=== PATIENT | male | born 1985 | race Caucasian/White ===

== ENCOUNTER 2019-01-30 08:32 | Emergency (ER) | payer BC ==
[2019-01-30 09:08] LABS: BASOPHILS % (AUTO) 0.3 %; EOSINOPHILS # (AUTO) 0.1 10^3/uL (0.0-0.7); EOSINOPHILS % (AUTO) 0.6 %; HGB - HEMOGLOBIN 15.7 g/dL (14.0-18.0); LYMPHOCYTES # (AUTO) 1.4 10^3/uL (1.5-3.5); LYMPHOCYTES % (AUTO) 11.6 %; MEAN CORPUSCULAR HGB CONC 34.6 g/dL (32.0-36.0); MEAN CORPUSCULAR VOLUME 86.6 fL (80.0-94.0); MEAN PLATELET VOLUME 9.9 fL (7.4-11.4); MONOCYTES # (AUTO) 0.6 10^3/uL (0.0-1.0); MONOCYTES % (AUTO) 4.9 %; NEUTROPHILS # (AUTO) 9.6 10^3/uL (1.5-6.6); NEUTROPHILS % (AUTO) 82.3 %; PLT - PLATELET COUNT 303 10^3/uL (130-450); RED BLOOD COUNT 5.24 10^6/uL (4.70-6.10); WHITE BLOOD COUNT 11.7 x10^3/uL (4.8-10.8)
[2019-01-30 09:10] LABS: BILIRUBIN,URINE NEGATIVE (NEGATIVE); GLUCOSE, URINE (UA) NEGATIVE (NEGATIVE); KETONES,URINE (UA) NEGATIVE (NEGATIVE); LEUKOCYTE ESTERASE, URINE NEGATIVE (NEGATIVE); NITRITE,URINE NEGATIVE (NEGATIVE); OCCULT BLOOD,URINE LARGE (NEGATIVE); PH,URINE 6.5 PH (5.0-7.5); PROTEIN,URINE NEGATIVE (NEGATIVE); UROBILINOGEN,URINE 0.2 (NORMAL) E.U./dL (NORMAL)
[2019-01-30 09:12] LABS: CLARITY,URINE HAZY (CLEAR)
[2019-01-30 09:20] LABS: BACTERIA,URINE Moderate /HPF (None Seen); MUCUS,URINE Few Strands; SQUAMOUS EPITHELIAL CELL,UR RARE Squamous (<= Few)
[2019-01-30 09:22] LABS: ALBUMIN 4.6 g/dL (3.2-5.5); ALBUMIN/GLOBULIN RATIO 1.3 (1.0-2.2); BILIRUBIN,TOTAL 0.4 mg/dL (0.2-1.0); CALCIUM 9.4 mg/dL (8.5-10.3); TOTAL PROTEIN 8.1 g/dL (6.7-8.2)
[2019-01-30] MEDS ORDERED: KETOROLAC 30 MG/ML VIAL IVP STA (09:35)
[2019-01-30] MEDS ORDERED: SODIUM CHLORIDE 0.9% 1,000 ML IV ONE (09:35)
[2019-01-30 10:31] VITALS: BP 117/66
--- NOTE | 2019-01-30 10:33 | CT Report ---
Reason: Left flank pain mild hydro on bedside u/s Procedure Date: 01/30/2019 Accession Number: [id number] / [id number] Procedure: CT - Abdomen/Pelvis WO CPT Code: FULL RESULT: EXAM: CT ABDOMEN AND PELVIS (CT KUB) EXAM DATE: 01/30/2019 09:56 AM. CLINICAL HISTORY: Left flank pain. Mild hydro on bedside u/s. COMPARISONS: None. TECHNIQUE: Routine axial helical CT imaging was performed through the abdomen and pelvis without IV contrast. Reconstructions: Coronal and sagittal. In accordance with CT protocol optimization, one or more of the following dose reduction techniques were utilized for this exam: automated exposure control, adjustment of mA and/or KV based on patient size, or use of iterative reconstructive technique. FINDINGS: Lung Bases: Unremarkable. Right Kidney/Ureter: There is a 3 mm nonobstructing calculus in the lower pole (series 3, image 70). No other urolithiasis, hydronephrosis, contour deforming mass. Left Kidney/Ureter: There is a 6 mm obstructing calculus in the proximal ureter (series 3, image 76 and series 5, image 44). There is mild hydronephrosis. In addition, there is mild stranding around the proximal ureter (series 3, image 75). A cyst is present in the lower pole (series 3, image 74). Other Solid Organs: Liver, spleen, pancreas, and bilateral adrenal glands are unremarkable. Gallbladder/Bile Ducts: Unremarkable. Peritoneal Cavity: There is an ovoid, fat attenuation structure with mild surrounding stranding anterior to the distal descending colon (series 3, image 98), compatible with epiploic appendagitis. No evidence of primary bowel inflammation. Appendix is not visualized and may be surgically absent. No evidence of bowel obstruction. Pelvic Organs: Urinary bladder is unremarkable. No pelvic adenopathy or free fluid. There are small bilateral fat-containing inguinal hernias. Vasculature: No abdominal aortic aneurysm. Other: No suspicious osseous lesion. IMPRESSION: 1. A 6 mm obstructing calculus in the left proximal ureter results in mild hydronephrosis. 2. A 3 mm nonobstructing calculus is present in the lower pole of the right kidney. 3. Findings of epiploic appendagitis of the distal descending colon. 4. Small bilateral fat-containing indirect inguinal hernias. RADIA
--- NOTE | 2019-01-30 10:41 | ED Physician Documentation ---
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 He began to have this pain on his way to work and he has had his bring him here to the emergency department. The pain is severe unrelenting and without modifiable factors. He has not had this pain previously. Review of Systems Constitutional: denies: Fever Eyes: denies: Decreased vision Ears: denies: Ear pain Nose: denies: Congestion Throat: denies: Sore throat Cardiac: denies: Chest pain / pressure Respiratory: denies: Dyspnea, Cough GI: reports: Abdominal Pain, Nausea. denies: Vomiting, Constipation, Diarrhea : denies: Dysuria, Frequency, Hematuria Skin: denies: Rash Musculoskeletal: reports: Back pain. denies: Neck pain, Extremity pain Neurologic: denies: Generalized weakness, Focal weakness, Numbness PD PAST MEDICAL HISTORY - Past Medical History Cardiovascular: None Respiratory: None Neuro: None Endocrine/Autoimmune: None GI: GERD : None HEENT: None Psych: None, Other Musculoskeletal: None Derm: None - Past Surgical History Past Surgical History: Yes General: Appendectomy - Present Medications Home Medications: Ambulatory Orders Medication Instructions Recorded Confirmed Hydrocodone/Acetaminophen 1 - 2 each PO Q6H PRN #14 tablet 01/30/19 [Hydrocodon-Acetaminophen 5-325] Tamsulosin [Flomax] 0.4 mg PO DAILY #7 capsule 01/30/19 - Social History Does the pt smoke?: No Smoking Status: Never smoker Does the pt drink ETOH?: No Does the pt have substance abuse?: No - Immunizations Immunizations are current?: Yes - POLST Patient has POLST: No PD ED PE NORMAL - Vitals Vital signs reviewed: Yes (hypertensive ) - General General: Alert and oriented X 3, Well developed/nourished, Other (appears uncomfortable ) - HEENT HEENT: Atraumatic, PERRL, EOMI - Cardiac Cardiac: RRR, No murmur - Respiratory Respiratory: No respiratory distress, Clear bilaterally - Abdomen Abdomen: Normal bowel sounds, Soft, Non tender, Non distended, No organomegaly - Back Back: No CVA TTP, No spinal TTP - Derm Derm: Normal color, Warm and dry, No rash - Extremities Extremities: No deformity, No edema - Neuro Neuro: Alert and oriented X 3, 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, No motor deficit, No sensory deficit, Normal speech Eye Opening: Spontaneous Motor: Obeys Commands Verbal: Oriented GCS Score: 15 - Psych Psych: Normal mood, Normal affect Results - Vitals Vitals: Vital Signs - 24 hr 01/30/19 01/30/19 08:36 10:31 Temperature 36.5 C 36.7 C Heart Rate 73 73 Respiratory 22 18 Rate Blood Pressure 151/101 H 117/66 O2 Saturation 99 100 Oxygen O2 Source Room air - Labs Labs: Laboratory Tests 01/30/19 01/30/19 01/30/19 08:57 09:02 09:02 WBC 11.7 H RBC 5.24 Hgb 15.7 Hct 45.4 MCV 86.6 MCH 30.0 MCHC 34.6 RDW 12.0 Plt Count 303 MPV 9.9 Neut # (Auto) 9.6 H Lymph # (Auto) 1.4 L Nob[place] # (Auto) 0.6 Eos # (Auto) 0.1 Baso # (Auto) 0.0 Absolute Nucleated RBC 0.00 Nucleated RBC % 0.0 Sodium 141 Potassium 4.0 Chloride 103 Carbon Dioxide 26 Anion Gap 12.0 BUN 20 Creatinine 1.0 Estimated GFR (MDRD) 86 L Glucose 116 H Calcium 9.4 Total Bilirubin 0.4 AST 32 ALT 67 H Alkaline Phosphatase 65 Total Protein 8.1 Albumin 4.6 Globulin 3.5 Albumin/Globulin Ratio 1.3 Lipase 34 Urine Color YELLOW Urine Clarity HAZY Urine pH 6.5 Ur Specific [place] 1.020 Urine Protein NEGATIVE Urine Glucose (UA) NEGATIVE Urine Ketones NEGATIVE Urine Occult Blood LARGE H Urine Nitrite NEGATIVE Urine Bilirubin NEGATIVE Urine Urobilinogen 0.2 (NORMAL) Ur Leukocyte Esterase NEGATIVE Urine RBC 6-10 H Urine WBC 0-3 Ur Squamous Epith Cells RARE Squamous Urine Bacteria Moderate H Urine Mucus Few Strands Ur Microscopic Review INDICATED Urine Culture Comments INDICATED - Rads (name of study) CT ab/pel w/o Radiology: Prelim report reviewed (Impression: 1. A 6 mm obstructing calculus in the left proximal ureter results in mild hydronephrosis. A 3 mm nonobstructing calculus is present in the lower pole of the right kidney. Findings of epiploic appendagitis of the distal descending colon. Small bilateral fat-containing direct inguinal hernias.), EMP read indepedently, See rad report Procedures - Bedside sono Bedside sono by EMP: With use of bedside ultrasound the left kidney is imaged it is sonographically minimally tender and there is evidence of hydronephrosis mild. PD MEDICAL DECISION MAKING - ED course Complexity details: reviewed results, re-evaluated patient, considered differential, d/w patient, d/w family ED course: 33-year-old male with acute left flank pain has a 6 mm stone lodged in the upper ureter on the left side and he has some improvement in his pain with the use of Toradol. He is given intravenous saline as well. Departure - Departure Disposition: 01 Home, Self Care Clinical Impression: Ureterolithiasis Instructions: ED Stone Renal W Colic Follow-Up: Meir Hall MD [Physician No Access] - Prescriptions: Hydrocodone/Acetaminophen [Hydrocodon-Acetaminophen 5-325] 1 - 2 each PO Q6H PRN #14 tablet PRN Reason: pain Tamsulosin [Flomax] 0.4 mg PO DAILY #7 capsule Comments: Today it appears there is a 6 mm stone in the proximal left ureter. This stone may have some trouble passing. If you do not have relief with all of your symptoms within the next 3 days call the urologist to set up an appointment. Forms: Activity restrictions
== END 2019-01-30 11:31 | disposition home or self-care (01) ==
LOC: ED 08:32
DX: N13.2 Hydronephrosis with renal and ureteral calculous obstruction (principal)
CPT/HCPCS: 36415; 74176; 80053; 81001; 81003; 83690; 85025; 87086; 96374; 99284

== ENCOUNTER 2019-06-01 06:53 | Outpatient (CLI) | payer BC ==
--- NOTE | 2019-06-01 11:45 | Ultrasound Report ---
Reason: LT URETERAL CALCULUS Procedure Date: 06/01/2019 Accession Number: [id number] / [id number] Procedure: US - Retroperitoneal CPT Code: Final Report FULL RESULT: EXAM: RENAL ULTRASOUND EXAM DATE: 06/01/2019 07:58 AM. CLINICAL HISTORY: Left ureteral calculus. COMPARISON: ABDOMEN/PELVIS W/O 01/30/2019 9:50 AM. TECHNIQUE: Real-time scanning was performed with static images obtained. FINDINGS: Right Kidney: 12.5 x 7.4 x 6.1 cm. 0.8 mm lower pole stone consistent with finding on prior CT. Mild hydronephrosis prevoiding, mostly resolved postvoiding. Left Kidney: 13.3 x 5.4 x 4.8 cm. Normal echotexture with no stones, contour-deforming masses, or hydronephrosis. 1.6 cm cyst of the lower pole kidney. Bladder: Bilateral jets seen. The prevoid bladder volume was 251 cc. The postvoid bladder volume was 16 cc. Other: None. IMPRESSION: 1. Right lower pole nephrolithiasis, stable from prior CT. 2. Mild prevoiding right-sided hydronephrosis resolved with voiding. 3. 1.6 cm cyst lower pole left kidney. No left-sided stones or hydronephrosis. RADIA
== END 2019-06-01 06:54 | disposition home or self-care (01) ==
LOC: DI 06:53
PROVIDERS: ATTEND Urology
DX: N20.0 Calculus of kidney (principal); N28.1 Cyst of kidney, acquired
CPT/HCPCS: 76770

== ENCOUNTER 2022-09-22 12:05 | Emergency (ER) | payer BC ==
[2022-09-22] MEDS ORDERED: TETANUS/DIPHTHERIA/PERTUSSIS 0.5 ML SYRINGE IM ONE (12:33)
[2022-09-22] MEDS ORDERED: BACITRACIN ZINC OINT 1 PACKET TOP STA (12:33)
--- NOTE | 2022-09-22 12:54 | ED Physician Documentation ---
History of Present Illness - Stated complaint Stated Complaint: LT HAND LAC - Chief complaint Chief Complaint: Laceration - Additonal information Additional information: 37-year-old male presents emergency department for evaluation of a left distal index finger laceration sustained when cutting meat at home. Uncertain of last tetanus status. He is right-hand dominant. Bleeding controlled blood pressure. Review of Systems Skin: reports: Laceration (s) PD PAST MEDICAL HISTORY - Past Medical History Cardiovascular: None Respiratory: None Neuro: None Endocrine/Autoimmune: None GI: GERD : None HEENT: None Psych: None, Other Musculoskeletal: None Derm: None - Past Surgical History Past Surgical History: Yes General: Appendectomy - Present Medications Home Medications: Ambulatory Orders Medication Instructions Recorded Confirmed Hydrocodone/Acetaminophen 1 - 2 each PO Q6H PRN #14 tablet 01/30/19 [Hydrocodon-Acetaminophen 5-325] Tamsulosin [Flomax] 0.4 mg PO DAILY #7 capsule 01/30/19 - Allergies Allergies/Adverse Reactions: Allergies Allergy/AdvReac Type Severity Reaction Status Date / Time No Known Drug Allergies Allergy Verified 09/22/22 12:27 - Social History Does the pt smoke?: No Smoking Status: Never smoker Does the pt drink ETOH?: No Does the pt have substance abuse?: No - Immunizations Immunizations are current?: Yes - POLST Patient has POLST: No PD ED PE EXPANDED - Extremities Extremities: Left finger(s) (3 cm linear laceration distal radial side index finger left hand. Preserved flexion extension at DIP. Normal sensation.) Results - Vitals Vitals: Vital Signs - 24 hr 09/22/22 12:23 Temperature 36.8 C Heart Rate 87 Respiratory 20 Rate Blood Pressure 163/107 H O2 Saturation 98 Oxygen O2 Source Room air Procedures - Laceration (location) left finger index Length in cm: 3 Wound type: Linear, Into subcut fat Neurovascular status: Sensory intact, Motor intact, Vascular intact Tendon involvement: Tendon intact Anesthesia: Lidocaine 1% Wound preparation: Irrigated copiously NS Skin layer closure: Nylon (4), Interrupted, Sutures - enter # (6) Other: Patient tolerated well, No complications, Neurovascular intact, Tetanus booster given PD Medical Decision Making - ED course Complexity details: d/w patient ED course: 37-year-old male here with a left distal index finger laceration sustained when cutting meat at home. Tetanus was updated today. No evidence of neurovascular compromise or tendon injury. Wound was easily closed with 6 interrupted sutures. Bacitracin applied. Routine wound care and emergent return precautions discussed Departure - Departure Disposition: 01 Home, Self Care Clinical Impression: Laceration of left index finger Qualifiers: Encounter type: initial encounter Damage to nail status: without damage Foreign body presence: without foreign body Qualified Code(s): S61.211A - Laceration without foreign body of left index finger without damage to nail, initial encounter Condition: Stable Record reviewed to determine appropriate education?: Yes Comments: Your suture(s) should be removed in 10 days. In 24 hours you may remove the dressing wash gently with warm soap and water, apply any antibiotic ointment and a simple bandage. Your tetanus Was updated today and should be good for the next 7 to 10 years. In order to protect the wound and advanced wound healing, it is important that you limit the movement of the index finger at the distal tip. Every time you fl ex or extend your finger this will interrupt tissue healing. We will need to minimize movement at the distal tip for the next 7 to 10 days. Please attempt to keep your wound clean and dry. Do not submerge it in dirty dishwater or bath water. Return to the emergency department if you have any concerns of infection such as redness, fevers milky drainage increased pain.
[2022-09-22 13:42] VITALS: BP 150/78
== END 2022-09-22 13:42 | disposition home or self-care (01) ==
LOC: ED 12:05
DX: S61.211A Laceration without foreign body of left index finger without damage to nail, initial encounter (principal); W26.0XXA Contact with knife, initial encounter; Y93.G1 Activity, food preparation and clean up
CPT/HCPCS: 12002; 90471; 90715; 99283; A9270

== ENCOUNTER 2023-07-17 17:30 | Outpatient (CLI) | payer BC ==
--- NOTE | 2023-07-18 19:22 | XRAY Report ---
PROCEDURE: Lumbar Spine 4V INDICATIONS: BACK Pain, lumbar WITH RADICULOPATHY TECHNIQUE: 4 views of the lumbar spine were acquired. COMPARISON: CT abdomen pelvis without contrast 01/30/2019. FINDINGS: Bones: 5 [id number] vertebrae are present. Straightening of the lumbar spine lordosis similar t o 2019. Minimal loss of the disc space height at L5-S1. No vertebral body compression fractures. No suspicious bony lesions. Soft tissues: Possible punctate nonobstructing right kidney stone. Overlying bowel gas pattern is no rmal. No suspicious soft tissue calcifications. IMPRESSION: Straightening of the lumbar spine lordosis. Punctate nonobstructing right kidney stone. Reviewed by: Jarred Solis MD on 07/18/2023 7:21 PM PST Approved by: Jarred Solis MD on 07/18/2023 7:21 PM PST Station ID: [id number]
== END 2023-07-17 17:31 | disposition home or self-care (01) ==
LOC: DI 17:30
PROVIDERS: ATTEND Physician Assistant
DX: N20.0 Calculus of kidney (principal); M54.16 Radiculopathy, lumbar region

== ENCOUNTER 2023-08-18 08:10 | Outpatient (CLI) | payer BC ==
[2023-08-18 08:28] LABS: BASOPHILS % (AUTO) 0.5 %; EOSINOPHILS # (AUTO) 0.2 10^3/uL (0.0-0.7); EOSINOPHILS % (AUTO) 2.4 %; HCT - HEMATOCRIT 49.3 % (42.0-52.0); HGB - HEMOGLOBIN 16.7 g/dL (14.0-18.0); LYMPHOCYTES # (AUTO) 2.4 10^3/uL (1.5-3.5); LYMPHOCYTES % (AUTO) 28.4 %; MEAN CORPUSCULAR HEMOGLOBIN 29.1 pg (27.0-31.0); MEAN CORPUSCULAR HGB CONC 33.9 g/dL (32.0-36.0); MEAN PLATELET VOLUME 9.2 fL (7.4-11.4); MONOCYTES % (AUTO) 11.9 %; NEUTROPHILS # (AUTO) 4.8 10^3/uL (1.5-6.6); NEUTROPHILS % (AUTO) 56.6 %; PLT - PLATELET COUNT 345 10^3/uL (130-450); RED BLOOD COUNT 5.73 10^6/uL (4.70-6.10); RED CELL DISTRIBUTION WIDTH 12.2 % (12.0-15.0); WHITE BLOOD COUNT 8.5 x10^3/uL (4.8-10.8)
[2023-08-18 08:58] LABS: THYROID STIMULATING HORMONE 2.72 uIU/mL (0.34-5.60)
[2023-08-18 09:45] LABS: ALBUMIN 4.5 g/dL (3.2-5.5); ALBUMIN/GLOBULIN RATIO 1.4 (1.0-2.2); ALKALINE PHOSPHATASE 83 IU/L (42-121); ALT ALANINE AMINOTRANSFERASE 76 IU/L (10-60); AST ASPARTATE AMINOTRANSFERASE 30 IU/L (10-42); BILIRUBIN,TOTAL 0.4 mg/dL (0.2-1.0); BUN - BLOOD UREA NITROGEN 17 mg/dL (6-20); CALCIUM 9.6 mg/dL (8.5-10.3); CARBON DIOXIDE - CO2 27 mmol/L (21-32); CHLORIDE 104 mmol/L (101-111); CHOL/HDL RATIO 8.7 (<5.0); CHOLESTEROL 251 mg/dL; CREATININE 0.9 mg/dL (0.6-1.3); GFR - MDRD 94 (>89); GLUCOSE 88 mg/dL (74-104); HDL CHOLESTEROL 29 mg/dL; SODIUM 139 mmol/L (135-145); TOTAL PROTEIN 7.7 g/dL (6.4-8.9); TRIGLYCERIDES 478 mg/dL (48-352)
[2023-08-18 11:59] LABS: LDL CHOLESTEROL,DIRECT 47 mg/dL (75-193); LDLD/HDL RATIO 1.6 (<3.6)
== END 2023-08-18 08:11 | disposition home or self-care (01) ==
LOC: LAB 08:10
PROVIDERS: ATTEND Physician Assistant
DX: Z13.9 Encounter for screening, unspecified (principal)
CPT/HCPCS: 36415; 80053; 80061; 83721; 84443; 85025

== ENCOUNTER 2023-09-17 14:48 | Outpatient (CLI) | payer BC ==
--- NOTE | 2023-09-17 18:32 | MRI Report ---
PROCEDURE: Lumbar Spine WO INDICATIONS: LUMBAR BACK PAIN TECHNIQUE: Noncontrast sagittal T1 spin echo and T2 fast echo, sagittal STIR, axial T1 and T2 fast spin echo thr ough the lumbar spine. In cases with scoliosis, additional coronal T2 fast spin echo may be performe d. COMPARISON: Xray lumbar spiine 07/17/2023 FINDINGS: Image quality: Excellent. Alignment and Curvature: There is trace retrolisthesis of L4 on L5, L5 on S1. Bone Marrow: Marrow is of normal overall signal. No acute vertebral body compression fractures. Spinal Cord: Conus medullaris terminates at the L1 level. Visualized cord demonstrates normal signa l and size. Paraspinous Soft Tissues: No paravertebral masses. Moderate disc desiccation is present at L4-5, L5-S1. T12-L1: No disc bulge, spinal stenosis or foraminal narrowing. L1-L2: No disc bulge, spinal stenosis or foraminal narrowing. Mild epidural lipomatosis. L2-L3: Minimal disc bulge without spinal stenosis or foraminal narrowing. Epidural lipomatosis is present. L3-L4: Minimal disc bulge without spinal stenosis or foraminal narrowing. Epidural lipomatosis is p resent. L4-L5: Mild disc bulge. There is a prominent superimposed left posterior paracentral extrusion gareth uring approximately 1.2 cm transverse by 2.1 cm craniocaudal. There is caudal migration below the L4- 5 disc space. There is compromise of the exiting nerve roots with mild spinal stenosis. L5-S1: Mild disc bulge with superimposed posterior central protrusion. There is mild compromise of the exiting left nerve roots secondary to protrusion. Minimal right foraminal narrowing. IMPRESSION: Prominent extrusion with caudal migration at L4-5 causing spinal stenosis and nerve root compromise. Reviewed by: Katarina Rangel MD on 09/17/2023 6:30 PM PST Approved by: Katarina Rangel MD on 09/17/2023 6:30 PM PST Station ID: [id number]
== END 2023-09-17 14:49 | disposition home or self-care (01) ==
LOC: DI 14:48
PROVIDERS: ATTEND Physician Assistant
DX: M51.16 Intervertebral disc disorders with radiculopathy, lumbar region (principal); M48.061 Spinal stenosis, lumbar region without neurogenic claudication; M47.26 Other spondylosis with radiculopathy, lumbar region; M51.17 Intervertebral disc disorders with radiculopathy, lumbosacral region; M48.07 Spinal stenosis, lumbosacral region

== ENCOUNTER 2024-02-09 07:21 | Outpatient (CLI) | payer BC ==
[2024-02-09 08:00] LABS: ALBUMIN 4.7 g/dL (3.2-5.5); ALBUMIN/GLOBULIN RATIO 1.6 (1.0-2.2); ALKALINE PHOSPHATASE 67 IU/L (42-121); ALT ALANINE AMINOTRANSFERASE 68 IU/L (10-60); AST ASPARTATE AMINOTRANSFERASE 27 IU/L (10-42); BILIRUBIN,TOTAL 0.4 mg/dL (0.2-1.0); BUN - BLOOD UREA NITROGEN 21 mg/dL (6-20); CALCIUM 9.6 mg/dL (8.5-10.3); CARBON DIOXIDE - CO2 29 mmol/L (21-32); CHLORIDE 105 mmol/L (101-111); CHOL/HDL RATIO 6.3 (<5.0); CHOLESTEROL 207 mg/dL; CREATININE 1.2 mg/dL (0.6-1.3); GFR - MDRD 67 (>89); GLUCOSE 110 mg/dL (74-104); HDL CHOLESTEROL 33 mg/dL; LDL CHOLESTEROL,CALCULATED 124 mg/dL; LDL/HDL RATIO 3.8 (<3.6); POTASSIUM 3.9 mmol/L (3.5-4.5); SODIUM 138 mmol/L (135-145); TOTAL PROTEIN 7.7 g/dL (6.4-8.9); TRIGLYCERIDES 252 mg/dL; VLDL CHOLESTEROL 50 mg/dL
== END 2024-02-09 07:22 | disposition home or self-care (01) ==
LOC: LAB 07:21
PROVIDERS: ATTEND Physician Assistant
DX: E78.1 Pure hyperglyceridemia (principal); R79.89 Other specified abnormal findings of blood chemistry
CPT/HCPCS: 36415; 80053; 80061; 83721